=== PATIENT | female | born 1950 | race Caucasian/White ===

== ENCOUNTER 2018-04-22 15:17 | Emergency (ER) | payer OTHER ==
[~2018-04-22] VITALS: Ht 172.7 cm; Wt 83.9 kg
[~2018-04-22 15:17] MED LIST: PROZAC10 MG; XANAX 0.25 MG0.25 MG
[2018-04-22] MEDS ORDERED: NABUMETONE 750750 M1 PO (18:03)
[2018-04-22] MEDS ORDERED: TRAMADOL 50 MG50 MG PO (18:05)
[2018-04-22] MEDS ORDERED: ONDANSETRON HCL4 M2 PO (18:15)
[2018-04-22] MEDS ORDERED: HYDROXYZINE HCL25 M2 PO (18:15)
[2018-04-22 18:25] VITALS: BP 112/56
== END 2018-04-22 18:26 | disposition home or self-care (01) ==
LOC: M.ERS 15:17
DX: S93.401A Sprain of unspecified ligament of right ankle, initial encounter (principal); S93.601A Unspecified sprain of right foot, initial encounter; S80.11XA Contusion of right lower leg, initial encounter; S80.811A Abrasion, right lower leg, initial encounter; R00.0 Tachycardia, unspecified; W10.9XXA Fall (on) (from) unspecified stairs and steps, initial encounter; Y93.89 Activity, other specified; Y92.89 Other specified places as the place of occurrence of the external cause; Y99.8 Other external cause status

== ENCOUNTER 2018-05-20 13:35 | Inpatient (IN) | payer OTHER ==
[~2018-05-20] VITALS: Ht 172.7 cm; Wt 75.7 kg
--- NOTE | ~2018-05-20 | PROC ---
[address] [address] PROCEDURE REPORT Name: INDIA SETH Room: [address] IN .#: [id number] Admission: 05/20/18 Attend Phys: Shannon Wagner MD Discharge: 05/26/18 Date of : 54 Report #: [id number] THIS REPORT FOR: //name// For GI report, please see the Provation report in Perceptive 7 content. By: 0707Medical Records Staff ANITA /VERONIKA
--- NOTE | ~2018-05-20 | CON ---
[address] [address] CONSULTATION Name: INDIA SETH Room: [address] IN [facility]#: [id number] Admission: 05/20/18 Attend Phys: Shannon Wagner MD Discharge: Date of : 54 Report #: [id number] THIS REPORT FOR: //name// CC: Alfonso Ashford Shannon Wagner DATE OF SERVICE: 05/21/2018 GASTROENTEROLOGY CONSULTATION REQUESTING PHYSICIAN: Shannon Wagner MD HISTORY OF PRESENT ILLNESS: This is a 68-year-old female who usually does not see a physician on a regular basis. The patient went to see her PCP a couple days ago for a sprained ankle and she was recognized to be jaundiced and therefore, was sent to the hospital for workup. The patient admits that for the past 6 months, she has been drinking pretty heavily. She drinks near a fifth of vodka per day. She reports the reason that she has been drinking is due to the fact that she has moved from out of [facility] to [place] and is depressed about that. Also, her son has , which makes her very depressed. The patient had a CT of abdomen and pelvis during this admission, which showed evidence of irregularity of the liver with possible large mass noted per CT. Her bilirubin also was elevated to 10, and her AST and ALT were also elevated. Finally, the patient also found to have urinary tract infection for which she is on antibiotic therapy. PAST MEDICAL HISTORY: Significant for history of depression and hypertension. ALLERGIES: No known drug allergies. MEDICATIONS: Include Celexa, Zofran, Toprol-XL and hydrochlorothiazide. SOCIAL HISTORY: The patient has moved from out of [facility] to [place]. She has recently lost her son, which has made her depressed and she has been drinking very heavily about a fifth of vodka a day. She is also a current smoker. FAMILY HISTORY: Significant for breast cancer in the sister. PHYSICAL EXAMINATION: VITAL SIGNS: Reveals blood pressure of 103/48, respirations 18, pulse 81, temperature 98.2. LUNGS: Clear. CARDIOVASCULAR: Regular. ABDOMEN: Large. There is positive fluid [place] [address] CONSULTATION Name: FABIOLA SETHORAMili Nice Room: [address]#: [id number] Admission: 05/20/18 Attend Phys: Shannon Wagner MD Discharge: Date of : 54 Report #: [id number] NEUROLOGIC: The patient is alert, oriented x 3. LABORATORY DATA: Reveal sodium of 132, potassium 3.8, BUN is 10, creatinine 1.3, glucose 89, AST 99, total bilirubin is 7.6, direct bilirubin is 6.4, calcium is 8.4, alkaline phosphatase is 159, ALT is 24, total protein is 5.8, albumin 1.9. BNP is 1668. INR 1.6. WBC is 8.4, hemoglobin 9.1 and platelet of 134. IMAGING: As discussed above. ASSESSMENT AND PLAN: The patient with what appears to be alcoholic liver disease who has ascites and possible lesion in the liver. I will order MRI to further evaluate the lesion and perform an upper endoscopy to rule out gastroesophageal varices. We may consider to tap her belly for diagnostic purposes. I will make further recommendation once the MRI and EGD are complete. By: 1159 0405Kevin Crespo MD /nt
[~2018-05-20 13:35] MED LIST changes: +HYDROXYZINE HCL25 M2 PO; +NABUMETONE 750750 M1 PO; +ONDANSETRON HCL4 M2 PO; +TRAMADOL 50 MG50 MG PO
[2018-05-20 13:43] VITALS: BP 99/43
[2018-05-20] MEDS ORDERED: ZOFRAN ODT4 MG DISSOLVE (13:46)
[2018-05-20] MEDS ORDERED: CELEXA40 MG PO (13:47)
[2018-05-20] MEDS ORDERED: HYDROCHLOROTHIA25 M2 PO (13:47)
[2018-05-20] MEDS ORDERED: TOPROL XL25 MG PO (13:47)
[2018-05-20 14:30] LABS: ABSOLUTE BASOPHILS 0.2 thou/uL (0.0-0.2); ABSOLUTE EOSINOPHILS 0.2 thou/uL (0.0-0.7); ABSOLUTE LYMPHOCYTES 1.9 thou/uL (0.8-5.3); ABSOLUTE MONOCYTES 1.4 thou/uL (0.0-1.2); ABSOLUTE NEUTROPHILS 7.9 thou/uL (1.6-8.1); BASOPHILS 1.5 %; HEMATOCRIT 31.6 % (37.0-47.0); HEMOGLOBIN 10.6 gm/dL (12.0-15.0); LYMPHOCYTES 16.2 %; MCH 35.2 pg (26.0-34.0); MCHC 33.4 g/dL (28.0-37.0); MCV 105.4 fL (80.0-100.0); MONOCYTES 11.8 %; MPV 9.8 fl. (7.2-11.1); NUCLEATED RBCS 0 /100WBC; PLATELET COUNT* 172 thou/uL (150-400); POLYS 68.5 %; RDW-CV 14.6 % (10.5-14.5); WBC 11.6 thou/uL (4.0-11.0)
[2018-05-20 14:51] LABS: ANION GAP 6 mmol/L (7-16); BUN 11 mg/dL (7-18); CALCIUM 8.8 mg/dL (8.5-10.1); CHLORIDE 98 mmol/L (98-107); CO2 25 mmol/L (21-32); CREATININE 1.4 mg/dL (0.6-1.3); GLUCOSE 112 mg/dL (70-99); SODIUM 129 mmol/L (136-145)
[2018-05-20 14:56] LABS: APTT 35.1 Seconds (25.0-31.3); INR 1.6; PROTIME 15.9 Seconds (9.20-11.50)
[2018-05-20 15:01] LABS: ALBUMIN 2.2 g/dL (3.4-5.0); ALKALINE PHOSPHATASE 195 U/L (46-116); AMMONIA 9 umol/L (11-32); AMYLASE 73 U/L (25-115); DIRECT BILIRUBIN 6.4 mg/dL (<0.1-0.3); LIPASE 281 U/L (73-393); NT-PRO BRAIN NAT PEPTIDE 1668 pg/mL (<300); SGOT 122 U/L (15-37); SGPT 33 U/L (30-65); TOTAL BILIRUBIN 9.2 mg/dL (<0.1-1.0); TOTAL PROTEIN 6.9 g/dL (6.4-8.2); TROPONIN-I LEVEL <0.06 ng/mL (<0.06)
--- NOTE | 2018-05-20 16:41 | EKG ---
[place] [address] ELECTROCARDIOGRAM REPORT Name: INDIA SETH Room: [facility]#: [id number] Admission: 05/20/18 Attend Phys: Discharge: Date of : 54 Report #: [id number] THIS REPORT FOR: //name// [facility] ED Test Date: 2018-05-20 Test Time: 13:49:10 Pat Name: INDIA SNOW Department: Room: Gender: F Chemical Detection Expert: Kevin CASTELAN : 1950 Requested By: Thelma Golden Order Number: [id number] MD: Cullen Jefferosn Measurements Intervals [place] Rate: 77 P: 48 AK: 139 QRS: 8 QRSD: 94 T: 3 QT: 429 QTc: 486 Interpretive Statements Sinus rhythm Low voltage, precordial leads Borderline prolonged QT interval No previous ECG available for comparison Electronically Signed On 05-20-2018 16:41:18 CDT by Cullen Jefferson [email or web address] <ELECTRONICALLY SIGNED> By: Cullen Jefferson MD, [facility] 05/20/18 1641 48 Cullen Jefferson MD, [facility] /EPI
[2018-05-20 17:49] LABS: URINE BLOOD NEGATIVE (Negative); URINE CLARITY CLOUDY; URINE COLOR ORANGE; URINE GLUCOSE-RANDOM TRACE (Negative); URINE KETONES 1+ (Negative); URINE LEUKOCYTES-REFLEX TRACE (Negative); URINE PROTEIN 1+ (Negative); URINE SPECIFIC GRAVITY >= 1.030 (1.005-1.030)
[2018-05-20 17:50] LABS: ICTOTEST (BILI CONFIRMATORY) Positive (Negative); URINE BILIRUBIN 3+ (Negative); URINE NITRITE-REFLEX POSITIVE (Negative)
[2018-05-20 17:57] LABS: BACTERIA-REFLEX >30 Many /HPF (None Seen); SQUAMOUS >10 Many /LPF (0-3); URINE WBC-REFLEX 0-5 Rare /HPF (0-5)
[2018-05-20 17:58] LABS: CRYSTALS None Seen /LPF (None Seen); HYALINE CASTS 0-3 Few /LPF (None Seen); MUCUS 0-3 Light strn/LPF (None Seen); URINE RBC None Seen /HPF (0-2)
[2018-05-20 18:03] LABS: AMP/METHAMP Negative (Negative); BARBITURATES Negative (Negative); BENZODIAZEPINES Negative (Negative); COCAINE Negative (Negative); METHADONE Negative (Negative); OPIATES Negative (Negative); PCP Negative (Negative); THC Negative (Negative)
[2018-05-20 18:32] VITALS: BP 99/53
[2018-05-20 18:41] VITALS: BP 99/53
--- NOTE | 2018-05-20 18:59 | NUR ---
PT ADMITTED TO UNIT. PT IS ALERT AND ORIENTED. PT HAS EDEMA OF LEGS AND ANKLES BILATERALLY. JAUNDICE NOTED ON FACE AND AROUND EYES. PULSES 2+ IN UPPER EXTREMITIES AND 1+ IN LOWER EXTREMITIES. LUNGS CLUNDS CLEAR. PT HAS ASCITES. PT DENIES ANY PAIN OR NAUSEA. HOURLY ROUNDING COMPLETED. PT REGUALR DIET BUT NPO AFTER MIDNIGHT, GI CONSULT IN THE MORNING. BED ALARM ON. WILL CONTINUE TO MONITOR.
[2018-05-20 20:30] VITALS: BP 100/55
[2018-05-21 02:12] LABS: HEPATITIS B SURFACE AG Negative (Negative)
--- NOTE | 2018-05-21 04:44 | NUR ---
PATIENT HAS SLEPT WELL THROUGHOUT THE NIGHT WITHOUT ANY ISSUES. VSS ON RA. NO C/O PAIN DURING THE SHIFT. PATIENT HAS REMAINED NPO SINCE MIDNIGHT PER DR. REYEZ. IV IN RIGHT AC-NS @ 70ML/HR. FALL PRECAUTIONS IN PLACE AND HOURLY ROUNDS MADE. WILL CONTINUE WITH PLAN OF CARE AND NURSING TO MONITOR.
[2018-05-21 06:53] LABS: HEMATOCRIT 26.5 % (37.0-47.0); HEMOGLOBIN 9.1 gm/dL (12.0-15.0); MCH 35.7 pg (26.0-34.0); MCHC 34.2 g/dL (28.0-37.0); MCV 104.3 fL (80.0-100.0); RBC 2.54 mil/uL (4.20-5.00); RDW-CV 14.3 % (10.5-14.5); WBC 8.4 thou/uL (4.0-11.0)
[2018-05-21 07:09] LABS: ALBUMIN 1.9 g/dL (3.4-5.0); CALCIUM 8.4 mg/dL (8.5-10.1); CREATININE 1.3 mg/dL (0.6-1.3); POTASSIUM 3.8 mmol/L (3.5-5.1); TOTAL BILIRUBIN 7.6 mg/dL (<0.1-1.0); TOTAL PROTEIN 5.8 g/dL (6.4-8.2)
[2018-05-21 08:16] VITALS: BP 103/48
[2018-05-21 10:37] VITALS: BP 103/48
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
--- NOTE | 2018-05-21 14:21 | NUR ---
PT RETURNED FROM EGD. PT IS ALERT AND ORIENTED. VITALS TAKEN AND PT IS STABLE. PT DENIES ANY PAIN OR NEEDS AT THIS TIME. MORNING MEDS THAT WERE HELD AT 0900 WERE GIVEN. HOURLY ROUNDING COMPLETED. WILL CONTINUE TO MONITOR.
--- NOTE | 2018-05-21 15:11 | NUR ---
REVIEWED AND AGREE WITH ALL CHARTING AND ASSESSMENTS COMPLETED BY ILDEFONSO Meredith RN.
--- NOTE | 2018-05-21 15:11 | NUR ---
PT TRANSFERRED TO [facility] AT THIS TIME. PT IS ALERT AND ORIENTED AND STABLE AT THIS TIME. HOURLY ROUNDING COMPLETED. REPORT GIVEN TO NEW NURSE.
--- NOTE | 2018-05-21 18:17 | NUR ---
ASSUMED CARE OF PATIENT AT 1515. REPORT RECEIVED FROM ILDEFONSO HEWITT. PATIENT SETTLED TO ROOM. PATIENT IS RESTING IN BED AT THIS TIME. PATIENT HAS DENIED ANY PAIN OR NAUSEA. PATIENT HAS GOOD APPETITE. PATIENT DENIES ANY NEEDS A THIS TIME. CALL LIGHT WITHIN REACH. WILL CONTINUE TO MONITOR.
[2018-05-21 23:09] VITALS: BP 98/51
--- NOTE | 2018-05-22 04:50 | NUR ---
ASSESSMENT COMPLETE. PT SLEPT THROUGH THE NIGHT WITHOUT ANY CONCERNS. PT HAS NPO SINCE OK FOR MRI TODAY. IV FLUIDS INFUSING. PT DENIES PAIN AND N/V. PT IS ON ROOM AIR WITH [place] SATS. PT TURNS SELF IN BED DURING THE NIGHT. PT IS UP STANDBY ASSIST TO BATHROOM. SEE ASSESSMENT AND VITALS FOR OTHER DETAILS. CALL LIGHT WITHIN REACH. WILL CONTINUE PLAN OF CARE
[2018-05-22 09:20] VITALS: BP 97/41
[2018-05-22 16:41] VITALS: BP 100/48
--- NOTE | 2018-05-22 17:58 | NUR ---
PATIENT RESTING IN BED. PATIENT UP STANDBY ASSIST. PATIENT DENIES ANY PAIN. PATIENT HAS GOOD APPETITE. PATIENT HAS MRI THIS AM WITHOUT INCIDENT. PATIENT DENIES ANY NEEDS AT THIS TIME. CALL LIGHT WITHIN REACH. WILL CONTINUE TO MONITOR.
[2018-05-22 20:00] VITALS: BP 122/77
--- NOTE | 2018-05-23 05:01 | NUR ---
ASSUMED PATIENT CARE AT 1900. ALERT AND ORIENTED TIMES FOUR. IV PATENT TO FLUIDS INFUSING. NO COMPLAINTS OF PAIN OR DISCOMFORT. UP AD HOMERO. CLINICAL RESEARCH SPECIALIST AND HOURLY ROUNDING COMPLETED DOCUMENTED.
[2018-05-23 08:00] VITALS: BP 83/40
[2018-05-23 16:00] VITALS: BP 101/57
--- NOTE | 2018-05-23 18:30 | NUR ---
ALERT AND ORIENTED X3, VERY FORGETFUL. IV IS PATENT AND INFUSING. PATIENT HAS HAD TWO EPISODES OF VOMITTING BUT DENIES NEED FOR NAUSEA MEDICATION. PAIN BEING MANAGED WITH PO AND IV PAIN MEDICATION. HAVING TREMORS, VERY RESTLESS AND HAS TRIED TO GET UP ON OWN MULTIPLE TIMES THROUGHOUT SHIFT. PATIENT DC'D IV THIS AM AND ALMOST DC'D THE 2ND THIS AFTERNOON. PATIENT ADMITS TO ALCOHOL ABUSE AND ALCOHOL WITHDRAWAL ASSESSMENT CHARTED. WITHDRAWAL SYMPTOMS HAVE PROGRESSED THROUGHOUT SHIFT, DR. MAGANA HAS BEEN NOTIFIED AND ORDERED HER TO TRANSFER TO [facility]. ATIVAN HAS BEEN GIVEN Q4H THROUGHOUT SHIFT. PATIENT IS TACHY AND ELEVATED BP. SLING IN PLACE ON LEFT ARM. HOURLY ROUNDS HAVE BEEN MAINTAINED THROUGHOUT SHIFT. SITTER AT BEDSIDE AT THIS TIME. CALL LIGHT IS WITHIN REACH. NURSING WILL CONTINUE TO MONITOR.
--- NOTE | 2018-05-23 18:43 | NUR ---
ALERT AND ORIENTED X4. UP AD HOMERO IN ROOM. IV IS PATENT AND SALINE LOCKED. DENIES PAIN AND NAUSEA. TOLERATING DIET. HOURLY ROUNDS HAVE BEEN MAINTAINED THROUGHOUT SHIFT. VITAL SIGNS STABLE. CALL LIGHT IS WITHIN REACH. NURSING WILL CONTINUE TO MONITOR.
[2018-05-23 19:20] VITALS: BP 111/57
--- NOTE | 2018-05-23 22:49 | NUR ---
ASSUMED CARE OF PATIENT AT 2200. AGREE WITH ASSESSMENT CHARTED. DENIES PAIN OR NAUSEA. PATIENT IN NO ACUTE DISTRESS. CALL LIGHT WITHIN REACH.
[2018-05-24 04:04] LABS: ABSOLUTE BASOPHILS 0.2 thou/uL (0.0-0.2); ABSOLUTE EOSINOPHILS 0.3 thou/uL (0.0-0.7); ABSOLUTE LYMPHOCYTES 1.9 thou/uL (0.8-5.3); ABSOLUTE MONOCYTES 1.2 thou/uL (0.0-1.2); ABSOLUTE NEUTROPHILS 6.7 thou/uL (1.6-8.1); BASOPHILS 1.5 %; EOSINOPHILS 2.9 %; HEMATOCRIT 27.5 % (37.0-47.0); HEMOGLOBIN 9.3 gm/dL (12.0-15.0); LYMPHOCYTES 18.5 %; MCH 35.5 pg (26.0-34.0); MCHC 33.8 g/dL (28.0-37.0); MCV 105.3 fL (80.0-100.0); MONOCYTES 11.5 %; MPV 10.9 fl. (7.2-11.1); NUCLEATED RBCS 0 /100WBC; PLATELET COUNT* 120 thou/uL (150-400); POLYS 65.6 %; RBC 2.61 mil/uL (4.20-5.00); RDW-CV 14.4 % (10.5-14.5); WBC 10.3 thou/uL (4.0-11.0)
[2018-05-24 04:12] LABS: CALCIUM 8.7 mg/dL (8.5-10.1); CREATININE 1.5 mg/dL (0.6-1.3); POTASSIUM 4.2 mmol/L (3.5-5.1)
[2018-05-24 04:15] LABS: % SATURATION 49 % (20-39); IRON 47 ug/dL (50-175)
--- NOTE | 2018-05-24 05:18 | NUR ---
ALERT AND ORIENTED X4. UP AD HOMERO IN ROOM. DENIES NEED FOR PAIN OR NAUSEA MEDICATION. RESTING QUIETLY ON HOURLY ROUNDS. CALL LIGHT WITHIN REACH.
[2018-05-24 07:56] VITALS: BP 106/52
[2018-05-24 12:00] VITALS: BP 97/46
[2018-05-24] MEDS ORDERED: CIPRO250 M1 PO (12:01)
[2018-05-24] MEDS ORDERED: NEXIUM40 MG PO (12:02)
[2018-05-24] MEDS ORDERED: THERA M PLUS T1 EAC2 PO (12:02)
[2018-05-24] MEDS ORDERED: CELEXA 20 MG TA20 MG PO (12:02)
[2018-05-24 16:00] VITALS: BP 91/46
--- NOTE | 2018-05-24 17:57 | NUR ---
PT PROGRESSING TOWARDS GOALS SLOWLY. VSS. DENIES PAIN. TOLERATING PO INTAKE. AMBULATING WITH ONE ASSIST. PT WANTING TO GO HOME BUT NERVOUS THAT "SHE IS NOT READY". PER HOSPITALIST, PT MAY DC ONCE GI OK WITH DC, WAITING FOR GI TO SEE PT. PT AWARE. DENIES ANY FURTHER QUESTIONS/CONCERNS.
[2018-05-24 20:45] VITALS: BP 119/50
--- NOTE | 2018-05-25 05:39 | NUR ---
PATIENT HAS BEEN SLEEPING WELL THROUGHOUT THE NIGHT WITHOUT ANY ISSUES. NO C/O PAIN. VSS ON RA. PATIENT IS UP AD-HOMERO AND STEADY. IV IN LEFT FOREARM-SL. PATIENT INSTRUCTED TO USE CALL LIGHT WHEN NEEDING ASSISTANCE. HOURLY ROUNDS MADE. WILL CONTINUE WITH PLAN OF CARE AND NURSING TO MONITOR.
[2018-05-25 08:17] VITALS: BP 110/49
--- NOTE | 2018-05-25 14:17 | NUR ---
PT.IN BED WITH LEGS ELEVATED. ASKED HER WHAT HER DISCHARGE PLAN IS. SHE SAID SHE IS SUPPOSED TO GO HOME TOMORROW. SHE WILL GO TO HER COUSIN'S HOUSE. COUSIN IS TAKING CARE OF PT.'S OTHER COUSIN, THAT HAD HIP SURGERY A FEW WEEKS AGO, SHE WILL HELP HER TOO FOR A FEW WEEKS. PT.SAID HER LEGS ARE VERY SWOLLEN AND ARE PAINFUL.
--- NOTE | 2018-05-25 16:43 | NUR ---
PATIENT A&OX4, RA, IV LEFT FOREARM SALINE LOCK. UP AD HOMERO, STEADY GAIT. NO C/O PAIN/N/V. BILATERAL LOWER EXTREMITY EDAMA NOTED, PHYSICAIN AWARE STARTED ON LASIX AND SPIRONOLACTONE. NO OTHER CONCERNS AT THIS TIME. APPROPRIATE AND COOPORATIVE WITH CARE.
[2018-05-25 21:30] VITALS: BP 105/56
--- NOTE | 2018-05-26 06:18 | NUR ---
PATIENT HAS RESTED WELL THROUGHOUT THE NIGHT. VSS ON RA. PATIENT IS UP AD-HOMERO AND STEADY ON HER FEET. ASSESSMENT CHARTED. IV IN LEFT FOREARM-SL. PATIENT INSTRUCTED TO USE CALL LIGHT WHEN NEEDING ASSISTANCE. HOURLY ROUNDS MADE. WILL CONTINUE WITH PLAN OF CARE AND NURSING TO MONITOR.
[2018-05-26 08:13] VITALS: BP 94/51
[2018-05-26] MEDS ORDERED: CELEXA 20 MG TA20 MG PO (10:01)
[2018-05-26] MEDS ORDERED: THERA M PLUS T1 EAC2 PO (10:01)
[2018-05-26] MEDS ORDERED: NEXIUM40 MG PO (10:01)
[2018-05-26] MEDS ORDERED: CIPRO250 M1 PO (10:01)
[2018-05-26] MEDS ORDERED: SPIRONOLACTONE25 M1 PO (10:18)
[2018-05-26] MEDS ORDERED: LASIX 20 MG TAB20 MG PO (10:19)
[2018-05-26] MEDS ORDERED: ACCUNEB SO1.25 MG/1 INH (10:21)
[2018-05-26] MEDS ORDERED: PROTONIX40 M1 PO (10:21)
[2018-05-26] MEDS ORDERED: UNICOMPLEX M TA1 TA1 PO (10:22)
[2018-05-26 12:19] LABS: INR 1.5; PROTIME 15.2 Seconds (9.20-11.50)
[2018-05-26 12:24] LABS: ALBUMIN 2.1 g/dL (3.4-5.0); TOTAL PROTEIN 6.4 g/dL (6.4-8.2)
[2018-05-26 13:02] VITALS: BP 94/51
[2018-05-26 15:58] VITALS: BP 94/51
--- NOTE | 2018-05-26 15:58 | NUR ---
PT GIVEN DISHCRAGE INFORMATION AND PRESCRIPTIONS AT THIS TIME. PT DENIED ANY FURTHER QUESTIONS AT THIS TIME. INFORMATION, WITH PERMISSION FROM PATIENT, GIVEN TO COUSIN REGADING PLANNING AND CARE. IV REMOVED. PT LEFT VIA WHEELCHAIR WITH COUSIN TO HOME CARE. HOURLY ROUNDING COMPLETED.
--- NOTE | 2018-05-26 16:12 | PATH ---
[address] [address] PATHOLOGY RPT PROCEDURE Name: MAGGIE SETH Room: [address] IN .R.#: [id number] Admission: 05/20/18 Date of : 54 Discharge: 05/26/18 Report #: [id number] Path Case #: [id number] [facility] Accession Number: [id number] . 01 Material submitted: . DUODENDAL BIOPSY/DUODENAL ULCER . 01 Clinical history: . None provided . 02 Diagnosis: Duodenal ulcer/biopsy: - Moderate active duodenitis with erosion and prominent fundic gland metaplasia suggesting peptic ulcer disease, negative for granulomas and dysplasia. . (CLAUDIA:at;05/24/2018) QTA/05/24/2018 . 02 Electronically signed: . Umberto Hunter MD, Pathologist NPI- [id number] . 01 Gross description: . Received in formalin labeled "Krivanos Miriam, Maggie, duodenal ulcer/biopsy," are 5 segments of fenton soft tissue measuring 0.9 x 0.6 x 0.2 cm in aggregate dimensions and ranging from 0.1 to 0.3 cm in maximum dimension. The specimen is submitted entirely in cassette A1. (TSD; 05/21/2018) TOB/TOB . 02 Pathologist provided ICD-10: K29.80 . 02 CPT . 102161 Specimen Comment: A courtesy copy of this report has been sent to Specimen Comment: [phone]. Specimen Comment: Report sent to Performed at: [address], [place] [id number] MD Carmelo Camarena MD Phone: [phone] Performed at: 02 [facility] [address], [place], [place] [id number] MD Umberto Hunter MD Phone: [phone]
== END 2018-05-26 16:10 | disposition home or self-care (01) | DRG 433 ==
LOC: M.ERS 13:35 → M.TBA-ER 17:15 → M.3W 17:15 → M.ORTHSURG 17:15 → M.3W 05-21 15:04
PROVIDERS: Internal Medicine; Nurse Practitioner Family; ADMIT Family Medicine
PROC: 0DB98ZX Excision of Duodenum, Via Natural or Artificial Opening Endoscopic, Diagnostic (ICD-10-PCS; principal; 2018-05-21)
DX: K70.31 Alcoholic cirrhosis of liver with ascites (principal); I50.32 Chronic diastolic (congestive) heart failure; K76.6 Portal hypertension; N30.01 Acute cystitis with hematuria; I13.0 Hypertensive heart and chronic kidney disease with heart failure and stage 1 through stage 4 chronic kidney disease, or unspecified chronic kidney disease; Z87.891 Personal history of nicotine dependence; K70.40 Alcoholic hepatic failure without coma; J44.9 Chronic obstructive pulmonary disease, unspecified; D53.9 Nutritional anemia, unspecified; F10.10 Alcohol abuse, uncomplicated; N18.3 Chronic kidney disease, stage 3 (moderate); K44.9 Diaphragmatic hernia without obstruction or gangrene; K31.89 Other diseases of stomach and duodenum; K26.9 Duodenal ulcer, unspecified as acute or chronic, without hemorrhage or perforation; F32.9 Major depressive disorder, single episode, unspecified; F41.9 Anxiety disorder, unspecified; E80.6 Other disorders of bilirubin metabolism; B96.20 Unspecified Escherichia coli [E. coli] as the cause of diseases classified elsewhere; I95.9 Hypotension, unspecified; Z23 Encounter for immunization; Z79.899 Other long term (current) drug therapy; Z80.3 Family history of malignant neoplasm of breast

== ENCOUNTER 2018-06-11 10:52 | Inpatient (IN) | payer OTHER ==
[~2018-06-11] VITALS: Ht 172.7 cm; Wt 98.0 kg
--- NOTE | ~2018-06-11 | CON ---
[address] [address] CONSULTATION Name: INDIA SETH Room: [address] IN .#: [id number] Admission: 06/11/18 Attend Phys: Sveta Arana MD Discharge: Date of : 54 Report #: [id number] THIS REPORT FOR: //name// CC: Sveta Ashford DATE OF SERVICE: 06/13/2018 REASON FOR CONSULTATION: Abdominal pain. HISTORY OF PRESENT ILLNESS: This is a 68-year-old female who is well known to us as she recently was hospitalized and underwent upper endoscopy. At that time, she had evidence of portal hypertensive gastropathy. She also had some duodenitis and esophagitis. We had recommended repeating upper endoscopy in 2 months. The patient reports that when she went home, she started having abdominal pain, which was intermittent. Abdominal pain was sharp and unbearable; therefore, she presented to hospital. Since hospitalization, she was found to be hypotensive with sepsis. She also had a urinary tract infection and has been on 2 antibiotics including Zosyn and Rocephin. Abdominal ultrasound has been obtained, which showed mild amount of ascites, gallbladder sludge without any evidence of bile duct dilatation. She also has worsening of her white count with currently WBC of 25,000. Her creatinine also has increased from 1.3 to 1.7. The patient's bilirubin has been down trending since May 20 as it was 9.2 at that time and 5.2 today. Her liver functions are otherwise mildly elevated but once again improved from previous numbers. Her albumin is 2.0. The patient also had elevated ammonia levels of 99 with mild degree of encephalopathy, which has improved since she has received lactulose t.i.d. and her ammonia is 9.9 today. Her lactulose has been dropped to once a day. PAST MEDICAL HISTORY: Significant for history of alcoholism, but she has stopped 3 months ago. She also used to smoke but does not smoke any further. Her other medical problems include cirrhosis, fatty liver disease, depression, gastroesophageal reflux disease, duodenitis, portal hypertensive gastropathy and gallbladder sludge. SOCIAL HISTORY: The patient lives at home, has previous history of tobacco and alcohol but has not done either one of them for the past 3 months. She has supportive siblings that are associated with her care. FAMILY HISTORY: Negative for GI malignancy. PHYSICAL EXAMINATION: VITAL SIGNS: Reveals blood pressure of 115/52, respirations 22, pulse 108 and [facility] [address] [place] [address] CONSULTATION Name: INDIA SETH [place] Room: [address]#: [id number] Admission: 06/11/18 Attend Phys: Sveta Arana MD Discharge: Date of : 54 Report #: [id number] temperature 97.9. LUNGS: Decreased breath sounds at the bases. CARDIOVASCULAR: Regular rate. ABDOMEN: Edematous and tender to palpation in 4 quadrants. Bowel sounds are positive and hypoactive. NEUROLOGICAL: The patient is alert and oriented x 3. LABORATORY DATA: Labs reveal sodium of 135, potassium 3.5, BUN is 17, creatinine 1.7 and glucose is 120. AST is 54, ALT is 31, alkaline phosphatase 92. Magnesium 2.0, total bilirubin is 5.2 and direct is 4.0. Ammonia level is 9.9 and down from 91. WBC is 23.1, hemoglobin 9.7 and platelet 145. The patient also has urinary tract infection. RADIOLOGICAL DATA: Abdominal ultrasound was done, which showed small amount of sludge within the gallbladder without evidence of cholelithiasis or cholecystitis. The gallbladder wall is thickened, but there is no pericholecystic fluid. There is chronic liver morphology with mild ascites and mild splenomegaly associated with her liver disease. ASSESSMENT AND PLAN: The patient with history of alcoholic liver disease, which her liver enzymes and bilirubin are improving since May 20. She has been septic, most probably secondary to her urinary tract infection. She also has mild ascites; therefore, she may have had SBP since she had abdominal pain. She is already on Zosyn and Rocephin. With this small amount of ascites, it may be difficult for Interventional Radiology to obtain any fluids. She is already on antibiotics anyways. We will continue monitoring her white count, the fact that her ammonia level has responded to lactulose and her mental status is clear is a good sign. She still has lot of fluid in her lower extremities and abdominal wall and she will benefit from diuretics but at the same time, she has elevated creatinine of 1.7 and hypertensive; therefore, we will hold diuretics at this time. We will continue to monitor her during this hospitalization and make further recommendation. By: 1127 [id number] Crespo MD /shasha
--- NOTE | ~2018-06-11 | EKG ---
[place] [address] ELECTROCARDIOGRAM REPORT Name: INDIA SETH Room: [facility]#: [id number] Admission: 06/11/18 Attend Phys: Discharge: Date of : 54 Report #: [id number] THIS REPORT FOR: //name// [facility] ED Test Date: 2018-06-11 Test Time: 10:56:09 Pat Name: INDIA SNOW Department: Room: Gender: F Equipment Engineer: Kevin CASTELAN : 1950 Requested By: Prudence Paulson Order Number: [id number] Reading MD: Measurements Intervals [place] Rate: 110 P: 42 RI: 120 QRS: 3 QRSD: 80 T: -13 QT: 400 QTc: 542 Interpretive Statements Sinus tachycardia Low voltage, precordial leads Borderline repol abnormality, diffuse leads Prolonged QT interval No previous ECG available for comparison [email or web address] By: 1056 1056 Epiphany EpiphanyMD /EPI
[~2018-06-11 10:52] MED LIST changes: +ACCUNEB SO1.25 MG/1 INH; +CELEXA 20 MG TA20 MG PO; +CELEXA40 MG PO; +CIPRO250 M1 PO; +HYDROCHLOROTHIA25 M2 PO; +LASIX 20 MG TAB20 MG PO; +NEXIUM40 MG PO; +PROTONIX40 M1 PO; +SPIRONOLACTONE25 M1 PO; +THERA M PLUS T1 EAC2 PO; +TOPROL XL25 MG PO; +UNICOMPLEX M TA1 TA1 PO; +ZOFRAN ODT4 MG DISSOLVE
[2018-06-11 10:53] VITALS: BP 112/46
[2018-06-11 11:14] LABS: BE -2.7 mmol/L (-2 to +3); HCO3 19.6 mmol/L (22.0-26.0); PCO2 26.4 mmHg (35.0-45.0); PO2 82.6 mmHg (75.0-100.0); pH 7.489 (7.340-7.450)
[2018-06-11 11:50] LABS: CALCIUM 9.5 mg/dL (8.5-10.1); CREATININE 1.3 mg/dL (0.6-1.3); POTASSIUM 3.6 mmol/L (3.5-5.1)
[2018-06-11 11:54] LABS: ALBUMIN 2.3 g/dL (3.4-5.0); MAGNESIUM 1.7 mg/dL (1.8-2.4); TOTAL BILIRUBIN 6.4 mg/dL (<0.1-1.0); TOTAL PROTEIN 6.7 g/dL (6.4-8.2)
[2018-06-11 12:06] LABS: URINE BLOOD 2+ (Negative); URINE CLARITY CLEAR; URINE COLOR DARK YELLOW; URINE GLUCOSE-RANDOM NEGATIVE (Negative); URINE KETONES TRACE (Negative); URINE PROTEIN 1+ (Negative); URINE SPECIFIC GRAVITY 1.025 (1.005-1.030)
[2018-06-11 12:12] LABS: ICTOTEST (BILI CONFIRMATORY) Positive (Negative); URINE BILIRUBIN 2+ (Negative); URINE LEUKOCYTES-REFLEX 2+ (Negative); URINE NITRITE-REFLEX POSITIVE (Negative)
[2018-06-11 12:29] LABS: HEMATOCRIT 30.6 % (37.0-47.0); HEMOGLOBIN 10.3 gm/dL (12.0-15.0); MCH 34.4 pg (26.0-34.0); MCHC 33.8 g/dL (28.0-37.0); MCV 101.7 fL (80.0-100.0); MPV 10.1 fl. (7.2-11.1); NUCLEATED RBCS 0 /100WBC; PLATELET COUNT* 112 thou/uL (150-400); RDW-CV 14.4 % (10.5-14.5); WBC 7.4 thou/uL (4.0-11.0)
[2018-06-11 12:43] LABS: BACTERIA-REFLEX >30 Many /HPF (None Seen); CASTS None Seen /LPF (None Seen); CRYSTALS None Seen /LPF (None Seen); MUCUS >6 Heavy strn/LPF (None Seen); SQUAMOUS 4-10 Moderate /LPF (0-3); TRANSITIONAL EPITHEL CELL 4-10 Moderate /LPF (None Seen); URINE RBC >20 Many /HPF (0-2); URINE WBC-REFLEX >25 Many /HPF (0-5)
[2018-06-11 13:24] LABS: ABSOLUTE EOSINOPHILS 0.1 thou/uL (0.0-0.7); ABSOLUTE LYMPHOCYTES 0.5 thou/uL (0.8-5.3); ABSOLUTE NEUTROPHILS 6.8 thou/uL (1.6-8.1); PLATELET ESTIMATE ADEQUATE
[2018-06-11 18:30] LABS: APTT 27.9 Seconds (25.0-31.3); INR 1.5; PROTIME 15.5 Seconds (9.20-11.50)
[2018-06-11 19:44] LABS: URINE BLOOD 1+ (Negative); URINE CLARITY CLEAR; URINE COLOR DARK YELLOW; URINE GLUCOSE-RANDOM NEGATIVE (Negative); URINE KETONES 1+ (Negative); URINE PROTEIN 1+ (Negative); URINE SPECIFIC GRAVITY 1.025 (1.005-1.030)
[2018-06-11 19:49] LABS: URINE BILIRUBIN 2+ (Negative); URINE LEUKOCYTES-REFLEX 2+ (Negative); URINE NITRITE-REFLEX POSITIVE (Negative)
[2018-06-11 19:50] LABS: ICTOTEST (BILI CONFIRMATORY) Positive (Negative)
[2018-06-11 19:55] LABS: AMP/METHAMP Negative (Negative); BARBITURATES Negative (Negative); BENZODIAZEPINES Negative (Negative); COCAINE Negative (Negative); METHADONE Negative (Negative); OPIATES POSITIVE (Negative); PCP Negative (Negative); THC Negative (Negative)
[2018-06-11 19:59] LABS: CASTS None Seen /LPF (None Seen); CRYSTALS None Seen /LPF (None Seen); SQUAMOUS 0-3 Few /LPF (0-3); URINE RBC 3-10 Few /HPF (0-2); URINE WBC-REFLEX 6-15 Few /HPF (0-5)
[2018-06-11 21:32] VITALS: BP 91/53
[2018-06-11 21:34] VITALS: BP 95/49
[2018-06-11 21:45] VITALS: BP 86/55
[2018-06-11 22:00] VITALS: BP 93/53
[2018-06-11 23:00] VITALS: BP 106/59
[2018-06-12] VITALS (56 sets, daily range): BP systolic 68–112; BP diastolic 35–73
[2018-06-12 04:09] LABS: HEMATOCRIT 27.6 % (37.0-47.0); HEMOGLOBIN 9.3 gm/dL (12.0-15.0); MCH 34.3 pg (26.0-34.0); MCHC 33.8 g/dL (28.0-37.0); MCV 101.4 fL (80.0-100.0); MPV 9.4 fl. (7.2-11.1); RBC 2.72 mil/uL (4.20-5.00); RDW-CV 14.2 % (10.5-14.5); WBC 11.1 thou/uL (4.0-11.0)
[2018-06-12 04:22] LABS: ALBUMIN 1.9 g/dL (3.4-5.0); CALCIUM 8.7 mg/dL (8.5-10.1); CREATININE 1.5 mg/dL (0.6-1.3); MAGNESIUM 2.1 mg/dL (1.8-2.4); POTASSIUM 3.9 mmol/L (3.5-5.1); TOTAL BILIRUBIN 5.7 mg/dL (<0.1-1.0)
[2018-06-13] VITALS (55 sets, daily range): BP systolic 78–136; BP diastolic 36–78
[2018-06-13 05:05] LABS: HEMATOCRIT 29.4 % (37.0-47.0); HEMOGLOBIN 9.6 gm/dL (12.0-15.0); MCH 32.9 pg (26.0-34.0); MCHC 32.7 g/dL (28.0-37.0); MCV 100.7 fL (80.0-100.0); MPV 10.5 fl. (7.2-11.1); RBC 2.92 mil/uL (4.20-5.00); RDW-CV 14.3 % (10.5-14.5); WBC 25.5 thou/uL (4.0-11.0)
[2018-06-13 05:09] LABS: CALCIUM 9.3 mg/dL (8.5-10.1); CREATININE 1.7 mg/dL (0.6-1.3); POTASSIUM 3.5 mmol/L (3.5-5.1); TOTAL BILIRUBIN 5.2 mg/dL (<0.1-1.0); TOTAL PROTEIN 6.4 g/dL (6.4-8.2)
[2018-06-13 10:00] LABS: HEMOGLOBIN 9.7 gm/dL (12.0-15.0); NUCLEATED RBCS 0 /100WBC
[2018-06-13 10:03] LABS: MCH 33.6 pg (26.0-34.0); MCHC 33.3 g/dL (28.0-37.0); MPV 10.4 fl. (7.2-11.1); PLATELET COUNT* 145 thou/uL (150-400); RBC 2.87 mil/uL (4.20-5.00); RDW-CV 14.2 % (10.5-14.5); WBC 23.1 thou/uL (4.0-11.0)
[2018-06-13 12:45] LABS: ABSOLUTE LYMPHOCYTES 2.3 thou/uL (0.8-5.3); ABSOLUTE MONOCYTES 1.4 thou/uL (0.0-1.2); ABSOLUTE NEUTROPHILS 19.4 thou/uL (1.6-8.1); PLATELET ESTIMATE DECREASED
[2018-06-13 12:46] LABS: LARGE PLATELETS OCCASIONAL; TOXIC GRANULATION 1+
[2018-06-13 12:47] LABS: TARGET CELLS Occasional
--- NOTE | 2018-06-13 14:14 | EKG ---
[place] [address] ELECTROCARDIOGRAM REPORT Name: INDIA SETH Room: [address] ADM IN [facility]#: [id number] Admission: 06/11/18 Attend Phys: Sveta Arana MD Discharge: Date of : 54 Report #: [id number] THIS REPORT FOR: //name// [facility] Test Date: 2018-06-12 Test Time: 10:06:55 Pat Name: INDIA VENCESKYLEEARANZA GRAYRES Department: Room: [address] Gender: F Stem Roller Or Crusher Operator: LYNN : 1950 Requested By: Sveta Arana Order Number: [id number] Reading MD: Jason Conway Measurements Intervals [place] Rate: 141 P: CT: QRS: 4 QRSD: 60 T: -13 QT: 331 QTc: 507 Interpretive Statements Atrial fibrillation Low voltage, precordial leads Borderline repolarization abnormality Prolonged QT interval Baseline wander in lead(s) V2,V3 Compared to ECG 06/11/2018 10:56:09 Sinus tachycardia no longer present Electronically Signed On 06-13-2018 14:14:32 QA AUTOMATION ARCHITECT by Jason Conway [email or web address] <ELECTRONICALLY SIGNED> By: Jason Conway MD, FAC 06/13/18 1414 1006 1006 Jason Conway MD, FAC /EPI
--- NOTE | 2018-06-13 14:17 | EKG ---
[place] [address] ELECTROCARDIOGRAM REPORT Name: INDIA SETH Room: [address] ADM IN [facility]#: [id number] Admission: 06/11/18 Attend Phys: Sveta Arana MD Discharge: Date of : 54 Report #: [id number] THIS REPORT FOR: //name// [facility] Test Date: 2018-06-12 Test Time: 10:38:49 Pat Name: INDIA SNOW Department: Room: [address] Gender: F Treasury Director: LYNN : 1950 Requested By: Sveta Arana Order Number: [id number] Phillip MD: Jason Conway Measurements Intervals [place] Rate: 99 P: 34 FL: 143 QRS: -4 QRSD: 78 T: 24 QT: 407 QTc: 523 Interpretive Statements Sinus rhythm consider Inferior infarct, old Prolonged QT interval Baseline wander in lead(s) I Electronically Signed On 06-13-2018 14:17:03 LITHOGRAPH PRESS OPERATOR TINWARE by Jason Conway [email or web address] <ELECTRONICALLY SIGNED> By: Jason Conway MD, [facility] 06/13/18 1417 1038 1038 Jason Conway MD, [facility] /EPI
--- NOTE | 2018-06-13 14:29 | EKG ---
[place] [address] ELECTROCARDIOGRAM REPORT Name: INDIA SETH Room: [address] ADM IN [facility]#: [id number] Admission: 06/11/18 Attend Phys: Sveta Arana MD Discharge: Date of : 54 Report #: [id number] THIS REPORT FOR: //name// [facility] Test Date: 2018-06-13 Test Time: 07:33:22 Pat Name: INDIA VENCESKYLEEARANZA GRAYRES Department: Room: [address] Gender: F Debt Counselor: ZULEMA : 1950 Requested By: Jason Conway Order Number: [id number] Phillip MD: Jason Conway Measurements Intervals [place] Rate: 100 P: 53 OR: 142 QRS: 7 QRSD: 59 T: -1 QT: 377 QTc: 487 Interpretive Statements Sinus tachycardia Supraventricular bigeminy Low voltage, extremity and precordial leads Borderline prolonged QT interval nonspecific st changes Electronically Signed On 06-13-2018 14:29:20 ELEMENTARY SCHOOL READING TEACHER by Jason Conway [email or web address] <ELECTRONICALLY SIGNED> By: Jason Conway MD, [facility] 06/13/18 1429 0733 0733 Jason Conway MD, [facility] /EPI
[2018-06-14] VITALS (56 sets, daily range): BP systolic 72–135; BP diastolic 44–72
[2018-06-14 05:43] LABS: HEMATOCRIT 29.3 % (37.0-47.0); HEMOGLOBIN 9.8 gm/dL (12.0-15.0); MCH 33.4 pg (26.0-34.0); MCHC 33.3 g/dL (28.0-37.0); MCV 100.4 fL (80.0-100.0); MPV 10.2 fl. (7.2-11.1); RBC 2.92 mil/uL (4.20-5.00); RDW-CV 13.8 % (10.5-14.5); WBC 16.9 thou/uL (4.0-11.0)
[2018-06-14 05:56] LABS: ALBUMIN 1.8 g/dL (3.4-5.0); CALCIUM 9.1 mg/dL (8.5-10.1); CREATININE 1.5 mg/dL (0.6-1.3); POTASSIUM 3.6 mmol/L (3.5-5.1); TOTAL BILIRUBIN 5.3 mg/dL (<0.1-1.0); TOTAL PROTEIN 6.1 g/dL (6.4-8.2)
--- NOTE | 2018-06-14 11:52 | EKG ---
[place] [address] ELECTROCARDIOGRAM REPORT Name: INDIA SETH Room: [address] ADM IN [facility]#: [id number] Admission: 06/11/18 Attend Phys: Sveta Arana MD Discharge: Date of : 54 Report #: [id number] THIS REPORT FOR: //name// [facility] Test Date: 2018-06-14 Test Time: 08:22:48 Pat Name: INDIA MEERA SNOW Department: Room: [address] Gender: F Group Insurance Specialist: CS : 1950 Requested By: Jason Conway Order Number: [id number] Reading MD: Jason Conway Measurements Intervals [place] Rate: 107 P: 35 MA: 140 QRS: 7 QRSD: 80 T: 0 QT: 390 QTc: 521 Interpretive Statements Sinus tachycardia Low voltage, precordial leads Nonspecific T abnormalities, anterior leads Prolonged QT interval Compared to ECG 06/13/2018 07:33:22 Atrial premature complex(es) no longer present Electronically Signed On 06-14-2018 11:52:51 BRICK BURNER HEAD by Jason Conway [email or web address] <ELECTRONICALLY SIGNED> By: Jason Conway MD, [facility] 06/14/18 1152 08 1 Jason Conway MD, [facility] /EPI
--- NOTE | 2018-06-14 14:56 | 2DMMODE ---
[place] [address] 2 D/M-MODE ECHOCARDIOGRAM Name: INDIA SETH Room: [address] IN [facility]#: [id number] Admission: 06/11/18 Attend Phys: Sveta Arana, Discharge: Date of : 54 Date of Service: 06/14/18 1456 Report #: [id number] THIS REPORT FOR: //name// APPROVED REPORT Study performed: 06/14/2018 09:46:57 EXAM: Comprehensive 2D, Doppler, and color-flow Echocardiogram Patient Location: In-Patient Room #: [facility] Status: routine BSA: 2.13 HR: 108 bpm BP: 125/63 mmHg Rhythm: NSR Other Information Study Quality: Good Indications Atrial Fibrillation 2D Dimensions IVSd: 9.29 (7-11mm) LVOT Diam: 18.40 (18-24mm) LVDd: 51.08 mm PWd: 8.16 (7-11mm) Ascending Ao: 29.58 (22-36mm) LVDs: 26.43 (25-40mm) Aortic Root: 32.24 mm Volumes Left Atrial Volume (Systole) LA ESV Index: 18.50 mL/m2 Aortic Valve AoV Peak Rodney.: 2.13 m/s AO Peak Gr.: 18.09 mmHg LVOT Max P.89 mmHg AO Mean Gr.: 9.60 mmHg LVOT Mean P.99 mmHg LVOT Max V: 1.65 m/s AO V2 VTI: 32.19 cm LVOT Mean V: 1.02 m/s DUONG (VTI): 2.17 cm2 LVOT V1 VTI: 26.26 cm AI Gaines: 4.42 m/s2 AI PHT: 252.59 ms Mitral Valve E/A Ratio: 0.69 [place] [address] 2 D/M-MODE ECHOCARDIOGRAM Name: INDIA SETH Room: [address] IN [facility]#: [id number] Admission: 06/11/18 Attend Phys: Sveta Arana, Discharge: Date of : 54 Date of Service: 06/14/18 1456 Report #: [id number] MV Decel. Time: 136.53 ms MV E Max Rodney.: 0.93 m/s MV PHT: 39.59 ms MVA (PHT): 5.56 cm2 TDI E/Lateral E': 5.81 E/Medial E': 9.30 Medial E' Rodney.: 0.10 m/s Lateral E' Rodney.: 0.16 m/s Pulmonary Valve PV Peak Rodney.: 1.20 m/s PV Peak Gr.: 5.74 mmHg Tricuspid Valve RAP Estimate: 5.00 mmHg TR Peak Gr.: 18.76 mmHg RVSP: 24.00 mmHg PA Pressure: 24.00 mmHg Left Ventricle The left ventricle is normal size. There is normal LV segmental wall motion. There is normal left ventricular wall thickness. Left ventricular systolic function is normal. The left ventricular ejection fraction is within the normal range. LVEF is 60-65%. Grade I - abnormal relaxation pattern. Right Ventricle The right ventricle is normal size. The right ventricular systolic function is normal. Atria The left atrium size is normal. The right atrium size is normal. Aortic Valve The aortic valve is normal in structure. Mild aortic regurgitation. There is no aortic valvular stenosis. Mitral Valve The mitral valve is normal in structure. There is no mitral valve regurgitation noted. No evidence of mitral valve stenosis. Tricuspid Valve The tricuspid valve is normal in structure. Trace tricuspid regurgitation. No pulmonary hypertension[place] [address] 2 D/M-MODE ECHOCARDIOGRAM Name: INDIA SETH Room: [address]#: [id number] Admission: 06/11/18 Attend Phys: Sveta Arana, Discharge: Date of : 54 Date of Service: 06/14/18 1456 Report #: [id number] The pulmonary valve is normal in structure. There is no pulmonic valvular regurgitation. Great Vessels The aortic root is normal in size. IVC is not visualized. Pericardium There is no pericardial effusion. <Conclusion> LVEF is 60-65%. Mild aortic regurgitation. <ELECTRONICALLY SIGNED> By: Jason Conway MD, FACC 06/14/18 1456 145 [id number] Jason Conway MD, FACC /INF
[2018-06-14 17:03] LABS: BF LYMPHOCYTES 2 %; BF MONOCYTES 4 %; BF POLYS 94 %; BF TISSUE 6 /100 WBC
[2018-06-14 17:05] LABS: BF RBC 4319 /mm3; CLARITY HAZY; COLOR AMBER; SOURCE ASCITES; TOTAL CELL COUNT 6895 /mm3; TOTAL VOLUME 3710 ml
[2018-06-15] VITALS (59 sets, daily range): BP systolic 86–141; BP diastolic 45–82
[2018-06-15 04:17] LABS: HEMATOCRIT 28.3 % (37.0-47.0); HEMOGLOBIN 9.6 gm/dL (12.0-15.0); MCH 33.8 pg (26.0-34.0); MCHC 34.1 g/dL (28.0-37.0); MCV 99.3 fL (80.0-100.0); MPV 9.9 fl. (7.2-11.1); RBC 2.85 mil/uL (4.20-5.00); RDW-CV 14.1 % (10.5-14.5)
[2018-06-15 04:31] LABS: ALBUMIN 1.7 g/dL (3.4-5.0); CALCIUM 9.1 mg/dL (8.5-10.1); CREATININE 1.3 mg/dL (0.6-1.3); POTASSIUM 3.3 mmol/L (3.5-5.1); TOTAL BILIRUBIN 5.4 mg/dL (<0.1-1.0)
[2018-06-15 04:39] LABS: TOTAL PROTEIN 5.8 g/dL (6.4-8.2)
--- NOTE | 2018-06-15 08:49 | CON ---
[address] [address] CONSULTATION Name: INDIA SETH Room: [address] IN [facility]#: [id number] Admission: 06/11/18 Attend Phys: Sveta Arana MD Discharge: Date of : 54 Report #: [id number] THIS REPORT FOR: //name// CC: Sveta Ashford DATE OF SERVICE: 06/14/2018 REASON FOR CONSULTATION: Pelvic mass. SUBJECTIVE: This is a 68-year-old female who has been admitted on 06/11/2018 due to nausea, vomiting and intractable abdominal pain. She is known to have alcohol-related liver cirrhosis. She denies any fever; however, she has been in the Intensive Care Unit due to hypotension and she has been started on empiric antibiotics. Initial evaluation of the CT of the abdomen and pelvis showed a small basilar pleural effusion with basilar pulmonary atelectasis plus ascites with a gallstone and possible gallbladder wall thickening. Later on, she had pelvic ultrasounds, which showed 4.1 x 3.5 x 2.8 echogenic mass within the right adnexa, is not calcified or fat density on the CT scan, uncertain etiology. The patient had a paracentesis on 06/12/2018. Cytology is pending. The patient is not able to tell whether she has been having weight loss recently. REVIEW OF SYSTEMS: Unable to be obtained due to the clinical condition. PAST MEDICAL HISTORY: Cirrhosis due to alcohol, anxiety, depression, GERD. MEDICATIONS: Per admission list. ALLERGIES: No known allergies. FAMILY HISTORY: Positive for breast cancer in sister. SOCIAL HISTORY: She smokes 1 pack per day. She uses alcohol almost around a liter on a daily basis; however, last time she drank alcohol was 3 months ago per her records. PHYSICAL EXAMINATION: VITAL SIGNS: Today, temperature is 36.6, pulse is 107, respirations 21, blood pressure is 122/55, SpO2 was 97% on 4 liters. GENERAL: The patient was lying in bed. She was not in acute distress. LUNGS: Decreased breathing sounds bilaterally. HEART: Regular rate and rhythm. S1, S2 within normal limits. ABDOMEN: Positive for ascites. Bowel sounds were positive. EXTREMITIES: +2 [place] [address] CONSULTATION Name: INDIA SETH Room: [address]#: [id number] Admission: 06/11/18 Attend Phys: Sveta Arana MD Discharge: Date of : 54 Report #: [id number] LABORATORY DATA: WBC 16.9, hemoglobin 9.8, MCV 100.4, platelets 125. Creatinine is 1.5, total bilirubin 5.3, ammonia 9.9, CA-125 is 445.5. IMAGING: As mentioned above. ASSESSMENT AND PLAN: A 68-year-old female who had liver cirrhosis due to alcohol, was found to have a 4 cm right adnexal mass with elevated tumor marker, CA-125. Her clinical condition is suspicious of ovarian cancer; however, the patient at this point is receiving supportive medical treatments and treatment for sepsis. She continues to be on antibiotics for complicated urinary tract infection/pneumonitis. RECOMMENDATIONS: I would like to make a referral as an outpatient for a Gynecology/Oncology. I discussed with the patient and the family at the bedside. At this point, we will continue current supportive care and make her stable. I discussed with RN. Most likely, the patient will be transferred to the floor in the morning if she continues to be in a stable clinical condition. All questions have been answered. <ELECTRONICALLY SIGNED> By: Angelica Tian MD 06/15/18 0849 1640 [id number] Tian MD /nt
[2018-06-15 13:11] LABS: BODY FLUID LDH 381 IU/L (()); BODY FLUID PROTEIN 0.9 g/dL (())
[2018-06-15 15:09] LABS: SOURCE ABDOMINAL
[2018-06-15 17:01] LABS: URINE BLOOD 1+ (Negative); URINE CLARITY CLEAR; URINE COLOR YELLOW; URINE GLUCOSE-RANDOM NEGATIVE (Negative); URINE KETONES TRACE (Negative); URINE LEUKOCYTES-REFLEX NEGATIVE (Negative); URINE NITRITE-REFLEX NEGATIVE (Negative); URINE PROTEIN NEGATIVE (Negative); URINE UROBILINOGEN 0.2 E.U./dl (0.2-1.0)
[2018-06-15 17:04] LABS: ICTOTEST (BILI CONFIRMATORY) Negative (Negative); URINE BILIRUBIN 1+ (Negative)
[2018-06-15 17:16] LABS: HYALINE CASTS >10 Many /LPF (None Seen); SQUAMOUS 0-3 Few /LPF (0-3)
[2018-06-15 17:17] LABS: MUCUS None Seen strn/LPF (None Seen); URINE WBC-REFLEX 0-5 Rare /HPF (0-5); YEAST-REFLEX Present (None Seen)
[2018-06-15 17:18] LABS: BACTERIA-REFLEX 1-9 Few /HPF (None Seen); CRYSTALS None Seen /LPF (None Seen); URINE RBC 0-2 Rare /HPF (0-2)
[2018-06-16] VITALS: BP 101/47
[2018-06-16 04:00] VITALS: BP 97/51
[2018-06-16 05:46] LABS: HEMATOCRIT 23.5 % (37.0-47.0); HEMOGLOBIN 8.1 gm/dL (12.0-15.0); MCH 34.4 pg (26.0-34.0); MCHC 34.4 g/dL (28.0-37.0); MCV 99.9 fL (80.0-100.0); RBC 2.35 mil/uL (4.20-5.00); RDW-CV 14.1 % (10.5-14.5); WBC 10.3 thou/uL (4.0-11.0)
[2018-06-16 06:13] LABS: ALBUMIN 2.4 g/dL (3.4-5.0); CALCIUM 9.4 mg/dL (8.5-10.1); CREATININE 1.2 mg/dL (0.6-1.3); POTASSIUM 3.3 mmol/L (3.5-5.1); TOTAL BILIRUBIN 5.3 mg/dL (<0.1-1.0); TOTAL PROTEIN 5.7 g/dL (6.4-8.2)
[2018-06-16 08:08] VITALS: BP 107/49
[2018-06-16 16:00] VITALS: BP 104/56
[2018-06-16 20:00] VITALS: BP 100/53
[2018-06-16 23:37] VITALS: BP 107/55
[2018-06-17 04:34] VITALS: BP 96/49
[2018-06-17 05:08] LABS: HEMATOCRIT 22.8 % (37.0-47.0); HEMOGLOBIN 7.8 gm/dL (12.0-15.0); MCHC 34.3 g/dL (28.0-37.0); MCV 99.1 fL (80.0-100.0); MPV 10.4 fl. (7.2-11.1); RBC 2.3 mil/uL (4.20-5.00); RDW-CV 13.9 % (10.5-14.5); WBC 11.7 thou/uL (4.0-11.0)
[2018-06-17 05:29] LABS: ALBUMIN 2.9 g/dL (3.4-5.0); CALCIUM 9.8 mg/dL (8.5-10.1); CREATININE 1.3 mg/dL (0.6-1.3); MAGNESIUM 1.8 mg/dL (1.8-2.4); TOTAL BILIRUBIN 5.6 mg/dL (<0.1-1.0)
[2018-06-17 08:35] VITALS: BP 104/46
[2018-06-17 15:09] VITALS: BP 94/41
[2018-06-17 16:00] VITALS: BP 110/41
[2018-06-17 20:11] VITALS: BP 89/45
[2018-06-18] VITALS: BP 95/47
[2018-06-18 04:00] VITALS: BP 109/37
[2018-06-18 08:00] VITALS: BP 116/58
[2018-06-18 12:00] VITALS: BP 90/52
[2018-06-18 16:00] VITALS: BP 104/55
[2018-06-18 20:00] VITALS: BP 91/47
[2018-06-19 01:30] VITALS: BP 91/41
[2018-06-19 04:00] VITALS: BP 96/51
--- NOTE | 2018-06-19 07:24 | CON ---
[address] [address] CONSULTATION Name: INDIA SETH Room: [address] IN [facility]#: [id number] Admission: 06/11/18 Attend Phys: Sveta Arana MD Discharge: Date of : 54 Report #: [id number] THIS REPORT FOR: //name// CC: Sveta Ashford REASON FOR CONSULTATION: Worsening respiratory failure. HISTORY OF PRESENT ILLNESS: This is a 68-year-old female patient who was admitted to this hospital on 06/11/2018 with a chief complaint of abdominal pain that began on the day of the hospitalization associated with nausea and vomiting multiple times, although she did not have fever or chills. During this hospitalization, she was evaluated by Cardiology after she was found in atrial fibrillation and her echocardiogram demonstrated preserved EF with diastolic dysfunction. She has a background history of alcohol abuse. She had been alcoholic in the past and she has liver cirrhosis. She followed Dr. Crespo from GI service. During this hospitalization, her chest x-ray showed bilateral infiltrate, which was thought to be secondary to fluid overload and pneumonia. She was seen by ID and started on antibiotic that was changed recently. She is currently on vancomycin and Unasyn. She was on cefepime prior to Unasyn. Her O2 needs have been increasing during this hospitalization. Last night, she developed respiratory distress and she had to be placed on the BiPAP. Her chest x-ray continued to worsen showing bilateral infiltrates with signs of vascular congestion. Also, during this hospitalization, she underwent paracentesis with drainage of 4 liters of fluid from her abdomen. When I saw her today, she was on BiPAP. She looks comfortable, tolerating the BiPAP well and ABGs were noted that will be discussed below. PAST MEDICAL HISTORY: History of alcoholic liver disease, history of depression, history of alcohol abuse, history of jaundice. REVIEW OF SYSTEMS: Limited due to the fact that she is on a BiPAP mask. I was unable to understand the patient, although she tried to talk to me but her sound was muffled. HOME MEDICATIONS: [facility]. ALLERGIES: No known drug allergies. FAMILY HISTORY: Positive for breast cancer. SOCIAL HISTORY: Smoker, 1 pack per day. She drinks alcohol daily; however, she reported she did not drink alcohol for the last 3 months. PHYSICAL EXAMINATION: GENERAL: She was on BiPAP overall looking comfortable, tolerating the BiPAP, [place] [address] CONSULTATION Name: INDIA SETH Room: [address]#: [id number] Admission: 06/11/18 Attend Phys: Sveta Arana MD Discharge: Date of : 54 Report #: [id number] asking to drink. VITAL SIGNS: Blood pressure 109/37, pulse rate of 100, temperature 36.6. HEENT: Oral cavity not examined, I did not take the BiPAP mask off. NECK: Trachea central. Neck is supple. No palpable lymph node, no palpable thyroid. CHEST: Diminished air movement bilaterally with prolonged expiratory phase, some rare end-expiratory wheeze. HEART: S1, S2, tachycardic. ABDOMEN: Slightly distended guarding, no rigidity. EXTREMITIES: Lower extremities, trace edema. No calf tenderness. NEUROLOGIC: Moving all 4 extremities spontaneously. No focal weakness. Cranial nerve examination limited because of BiPAP mask. PSYCHIATRIC: Mood and affect could not be evaluated. LYMPHATICS: No palpable lymph nodes. LABORATORY DATA: She had multiple sets of blood test during this hospitalization, reviewed. Initially, her white blood count was 7.4, today is 15.5. Her hemoglobin today is 8.1 compared to 10.3 upon hospitalization. Her platelets is 107 today, her potassium is 3.1. Sodium 143. Creatinine of 1.4, it was 1.3 upon hospitalization. Her ABGs this morning 7.48, this was done on BiPAP. Earlier during the hospitalization also ABGs done on 3 liters 7.. Her INR is 1.5. She had multiple chest imaging during this hospitalization reviewed, showed progressive infiltrate and signs of vascular congestion and today's chest x-ray, increased left lung consolidation. IMPRESSION: 1. Acute hypoxic respiratory failure. 2. Pulmonary infiltrate. 3. Fluid overload. 4. Diastolic dysfunction. 5. Liver cirrhosis. 6. Ascites. 7. History of alcohol abuse. 8. Smoker with presumed chronic obstructive pulmonary disease. PLAN: At this point, the patient is tolerating the BiPAP. I would continue the BiPAP support, although I discussed with RN, might give her breaks during the daytime to by nasal cannula to see if she can tolerate it, but I would recommend to keep her on the BiPAP most of the coming 24 hours. She needs a followup ABGs and chest x-ray. She is on antibiotic that was changed yesterday by ID. I am going to trial her on steroids and she will be on nebulization treatment. I agree with diuresis, noted she received an extra dose of Lasix this morning. We will follow along with you. [address] [address] CONSULTATION Name: INDIA SETH Room: [address] IN [facility]#: [id number] Admission: 06/11/18 Attend Phys: Sveta Arana MD Discharge: Date of : 54 Report #: [id number] Thank you for the consult. We will do a chest x-ray and ABG in a.m. <ELECTRONICALLY SIGNED> By: Lorraine Cordova MD 06/19/18 0724 0827 [id number] Peña MD /nt
[2018-06-19 08:05] VITALS: BP 96/51
[2018-06-19 08:46] LABS: BE -2.9 mmol/L (-2 to +3); HCO3 19.5 mmol/L (22.0-26.0); PCO2 26.3 mmHg (35.0-45.0); PO2 60.1 mmHg (75.0-100.0); pH 7.489 (7.340-7.450)
[2018-06-19 12:00] VITALS: BP 91/46
[2018-06-19 16:00] VITALS: BP 105/56
[2018-06-19 19:40] VITALS: BP 107/54
[2018-06-20] VITALS: BP 98/52
[2018-06-20 04:00] VITALS: BP 94/41
[2018-06-20 07:30] VITALS: BP 107/56
[2018-06-20 12:00] VITALS: BP 122/58
[2018-06-20 16:00] VITALS: BP 102/54
[2018-06-20 19:40] VITALS: BP 95/46
[2018-06-21] VITALS: BP 103/56
[2018-06-21 04:00] VITALS: BP 103/51
[2018-06-21 04:01] LABS: HEMATOCRIT 23.6 % (37.0-47.0); HEMOGLOBIN 7.8 gm/dL (12.0-15.0); MCH 33.4 pg (26.0-34.0); MCHC 33.2 g/dL (28.0-37.0); MCV 100.7 fL (80.0-100.0); MPV 11.6 fl. (7.2-11.1); RBC 2.34 mil/uL (4.20-5.00); RDW-CV 15.5 % (10.5-14.5); WBC 18.8 thou/uL (4.0-11.0)
[2018-06-21 04:20] LABS: ALBUMIN 2.4 g/dL (3.4-5.0); CALCIUM 9.7 mg/dL (8.5-10.1); CREATININE 1.4 mg/dL (0.6-1.3); MAGNESIUM 1.7 mg/dL (1.8-2.4); POTASSIUM 3.4 mmol/L (3.5-5.1); TOTAL BILIRUBIN 3.1 mg/dL (<0.1-1.0); TOTAL PROTEIN 5.6 g/dL (6.4-8.2)
[2018-06-21 09:30] VITALS: BP 118/46
--- NOTE | 2018-06-21 10:05 | PATH ---
[address] [address] PATHOLOGY RPT PROCEDURE Name: INDIA SETH Room: [address] IN [facility]#: [id number] Admission: 06/11/18 Date of : 54 Discharge: Report #: [id number] Path Case #: [id number] Note [facility] Accession Number: [id number] TESTS RESULT FLAG UNITS REF RANGE LAB Clinician Provided Cytology Information No. of containers..01 Other (Miscellaneous) Source: 01 ABDOMINAL FLUID DIAGNOSIS: 02 ABDOMINAL FLUID NEGATIVE FOR MALIGNANT CELLS. FEW REACTIVE MESOTHELIAL CELLS AND ABUNDANT INFLAMMATION, PREDOMINANTLY ACUTE. INCLUDES EVALUATION WITH A CELL BLOCK. Signed out by: 02 Umberto Hunter MD, Pathologist NPI- [id number] Performed by: 01 Stefanie Fischer, Message Broker Developer ([facility]) Gross description: 01 40ML, YELLOW, CLOUDY /LCS FLAG LEGEND: L-Low Normal,H-High Normal,LL-Alert Low,HH-Alert High <-Panic Low,>-Panic High,A-Abnormal,AA-Critical Abnormal Performed at: [address] [place] [address] Carmelo Camarena MD, [address] [place] [id number] Umberto Hunter MD, Specimen Comment: A courtesy copy of this report has been sent to Specimen Comment: [phone]. Specimen Comment: Report sent to Specimen Comment: A duplicate report has been generated due to demographic updates. Performed at: [address], [place], [place] [id number] MD Carmelo Camarena MD Phone: [phone]
[2018-06-21 12:00] VITALS: BP 120/49
--- NOTE | 2018-06-21 13:08 | CON ---
[address] [address] CONSULTATION Name: INDIA SETH Room: [address] IN .#: [id number] Admission: 06/11/18 Attend Phys: Sveta Arana MD Discharge: Date of : 54 Report #: [id number] THIS REPORT FOR: //name// CC: Sveta Ashford DATE OF SERVICE: 06/12/2018 HISTORY OF PRESENT ILLNESS: The patient is a 68-year-old single white female who I was asked to see in the hospital today after she was noted to be in atrial fibrillation. The history is obtained from the patient as well as some old records. The patient has been an alcoholic in the past. She previously drank up to a fifth of whiskey a day. She was diagnosed with liver disease this fall. She has been followed by Dr. Crepso. She was admitted to [place] yesterday with abdominal discomfort and nausea. This morning she went into rapid atrial fibrillation. I was asked to see her for further evaluation and treatment. She denies a history of heart disease. She does have occasional chest pain, although it is nonexertional. She is not very active at this time. She denies any shortness of breath, palpitations or recent syncope. PAST MEDICAL HISTORY: She has had a hysterectomy. There is no history of hypertension, diabetes, hyperlipidemia. She has no known drug allergies. CURRENT MEDICATIONS: Consist of Nexium, Celexa. She has been on Lasix in the past. She has been on spironolactone. ALLERGIES: She has no known drug allergies. FAMILY HISTORY: Father of heart attack when he was 42. 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 She has been a smoker, but quit several months ago. She no longer abuses alcohol. She has a history of illicit drug use including using cocaine and methamphetamines. She never used IV drugs. Apparently, one of her ex-husbands was a drug dealer. REVIEW OF SYSTEMS: She has had no history of a stroke, asthma, peptic ulcer disease, GI bleeding, kidney disease, cancer, psychiatric illness. PHYSICAL EXAMINATION: GENERAL: Revealed a middle-aged female who appeared in no acute distress, lying in bed. VITAL SIGNS: She had a blood pressure of only 90 systolic, pulse was 90. She is afebrile. HEENT: She was icteric, conjunctivae pink[place] [address] CONSULTATION Name: INDIA SETH Room: [address] IN ..#: [id number] Admission: 06/11/18 Attend Phys: Sveta Arana MD Discharge: Date of : 54 Report #: [id number] NECK: Veins do not appear distended. CHEST: Clear to auscultation. CARDIAC: Regular rate and rhythm, no murmur. ABDOMEN: Distended. EXTREMITIES: Had no edema. Dorsalis pedis pulse 1+ bilaterally. SKIN: Jaundiced. DIAGNOSTIC DATA: Her ECG on admission yesterday showed a sinus tachycardia with low voltage, nonspecific T-wave changes. Today, ECG shows atrial fibrillation with rapid ventricular response rate. Her workup so far, she had a chest x-ray on admission yesterday that showed atelectasis, otherwise unremarkable. She had lab work that consist of creatinine 1.5, bilirubin 5.7, SGOT 72, alkaline phosphatase of 94, SGPT 31, albumin is 1.9. Ammonia level is 91, which is elevated. Her INR is 1.5. Her white blood cell count 11.1, hemoglobin 9.3, MCV 101, platelet count 106,000. IMPRESSION AND RECOMMENDATIONS: 1. Atrial fibrillation. I would check thyroid function studies and an echocardiogram. At this time, the blood pressure is too low for beta antonio. I would recommend loading the patient with digoxin. If she has recurrent atrial fibrillation, I would recommend antiarrhythmic therapy. 2. Cirrhosis. 3. Anemia. 4. History of alcohol abuse. 5. History of illicit drug use. 6. History of tobacco abuse. <ELECTRONICALLY SIGNED> By: Jason Conway MD, FACC 06/21/18 1308 1100 [id number] Conway MD, FACC /nt
[2018-06-21 16:00] VITALS: BP 112/45
[2018-06-21 17:58] LABS: MAGNESIUM 1.8 mg/dL (1.8-2.4)
[2018-06-21 17:59] LABS: POTASSIUM 4.4 mmol/L (3.5-5.1)
[2018-06-21 20:30] VITALS: BP 103/56
[2018-06-22] VITALS (7 sets, daily range): BP systolic 99–118; BP diastolic 45–55
[2018-06-22 08:50] LABS: HEMATOCRIT 24.7 % (37.0-47.0); HEMOGLOBIN 8.3 gm/dL (12.0-15.0); MCH 33.9 pg (26.0-34.0); MCHC 33.6 g/dL (28.0-37.0); MCV 100.7 fL (80.0-100.0); MPV 11.9 fl. (7.2-11.1); RBC 2.45 mil/uL (4.20-5.00); RDW-CV 15.3 % (10.5-14.5); WBC 20.2 thou/uL (4.0-11.0)
[2018-06-22 09:02] LABS: ALBUMIN 2.5 g/dL (3.4-5.0); CALCIUM 9.8 mg/dL (8.5-10.1); CREATININE 1.3 mg/dL (0.6-1.3); MAGNESIUM 1.8 mg/dL (1.8-2.4); PHOSPHORUS* 3.1 mg/dL (2.5-4.9); POTASSIUM 4.2 mmol/L (3.5-5.1); TOTAL BILIRUBIN 3.2 mg/dL (<0.1-1.0); TOTAL PROTEIN 5.7 g/dL (6.4-8.2)
[2018-06-23 04:00] VITALS: BP 132/86
[2018-06-23 05:07] LABS: HEMATOCRIT 24.3 % (37.0-47.0); HEMOGLOBIN 8.1 gm/dL (12.0-15.0); MCH 33.7 pg (26.0-34.0); MCHC 33.4 g/dL (28.0-37.0); MCV 100.9 fL (80.0-100.0); MPV 11.6 fl. (7.2-11.1); RBC 2.41 mil/uL (4.20-5.00); RDW-CV 15.3 % (10.5-14.5); WBC 19.2 thou/uL (4.0-11.0)
[2018-06-23 05:25] LABS: ALBUMIN 2.4 g/dL (3.4-5.0); CALCIUM 9.8 mg/dL (8.5-10.1); CREATININE 1.2 mg/dL (0.6-1.3); MAGNESIUM 1.8 mg/dL (1.8-2.4); PHOSPHORUS* 3.4 mg/dL (2.5-4.9); POTASSIUM 4.1 mmol/L (3.5-5.1); TOTAL BILIRUBIN 3.1 mg/dL (<0.1-1.0); TOTAL PROTEIN 5.6 g/dL (6.4-8.2)
[2018-06-23 08:00] VITALS: BP 103/45
[2018-06-23] MEDS ORDERED: AMOXICILLIN 50500 MG PO (12:24)
[2018-06-23] MEDS ORDERED: DIGOXIN250 MCG PO (12:34)
[2018-06-23] MEDS ORDERED: MIDODRINE HCL 55 M1 PO (12:35)
[2018-06-23] MEDS ORDERED: LACTULOSE10 GM/15 M PO (12:36)
[2018-06-23] MEDS ORDERED: SPIRONOLACTONE50 MG PO (12:37)
[2018-06-23] MEDS ORDERED: PREDNISONE 10 M10 MG PO (12:38)
[2018-06-23] MEDS ORDERED: BACTRIM DS TAB1 EAC1 PO (12:39)
[2018-06-23 12:40] VITALS: BP 103/45
== END 2018-06-23 16:05 | DRG 871 ==
LOC: M.ERS 10:52 → M.TBA-ER 15:55 → M.ERS 15:55 → M.2W 18:14 → M.TBA-ER 18:14 → M.ICU 18:14 → M.2W 06-15 17:04
PROVIDERS: Internal Medicine; Personal Emergency Response Attendant; ADMIT Internal Medicine
PROC: 02HV33Z Insertion of Infusion Device into Superior Vena Cava, Percutaneous Approach (ICD-10-PCS; principal; 2018-06-11)
PROC: 0W9G3ZZ Drainage of Peritoneal Cavity, Percutaneous Approach (ICD-10-PCS; 2018-06-15)
PROC: 5A09357 Assistance with Respiratory Ventilation, Less than 24 Consecutive Hours, Continuous Positive Airway Pressure (ICD-10-PCS; 2018-06-18)
DX: A41.9 Sepsis, unspecified organism (principal); J15.6 Pneumonia due to other Gram-negative bacteria; J96.01 Acute respiratory failure with hypoxia; K65.9 Peritonitis, unspecified; K76.6 Portal hypertension; N18.3 Chronic kidney disease, stage 3 (moderate); F32.9 Major depressive disorder, single episode, unspecified; F41.9 Anxiety disorder, unspecified; K70.31 Alcoholic cirrhosis of liver with ascites; I48.91 Unspecified atrial fibrillation; D64.9 Anemia, unspecified; K31.89 Other diseases of stomach and duodenum; K29.80 Duodenitis without bleeding; K20.9 Esophagitis, unspecified; J44.9 Chronic obstructive pulmonary disease, unspecified; F17.210 Nicotine dependence, cigarettes, uncomplicated; I95.9 Hypotension, unspecified; N30.90 Cystitis, unspecified without hematuria; I51.89 Other ill-defined heart diseases; N83.209 Unspecified ovarian cyst, unspecified side; B96.20 Unspecified Escherichia coli [E. coli] as the cause of diseases classified elsewhere; D69.6 Thrombocytopenia, unspecified; E27.9 Disorder of adrenal gland, unspecified; K72.90 Hepatic failure, unspecified without coma; E87.70 Fluid overload, unspecified; N83.9 Noninflammatory disorder of ovary, fallopian tube and broad ligament, unspecified; Z79.51 Long term (current) use of inhaled steroids; Z80.3 Family history of malignant neoplasm of breast; Z90.710 Acquired absence of both cervix and uterus; Z79.899 Other long term (current) drug therapy; Z82.49 Family history of ischemic heart disease and other diseases of the circulatory system; Z87.11 Personal history of peptic ulcer disease

== ENCOUNTER → 2018-10-11 | Outpatient (CLI) | payer OTHER ==
[~2018-10-11] MED LIST changes: +AMOXICILLIN 50500 MG PO; +BACTRIM DS TAB1 EAC1 PO; +DIGOXIN250 MCG PO; +LACTULOSE10 GM/15 M PO; +MIDODRINE HCL 55 M1 PO; +PREDNISONE 10 M10 MG PO; +SPIRONOLACTONE50 MG PO
== END ==
LOC: M.ULTRA 09:00
DX: K74.60 Unspecified cirrhosis of liver (principal); R16.1 Splenomegaly, not elsewhere classified; R18.8 Other ascites

== ENCOUNTER → 2019-04-01 | Day surgery (SDC) | payer OTHER ==
[~2019-04-01] MED LIST changes: +VITAMIN B-1100 M1 PO; +XIFAXAN550 M1 PO
--- NOTE | ~2019-04-01 | PROC ---
[address] [address] PROCEDURE REPORT Name: INDIA ESTES Room: [facility]#: [id number] Admission: 04/01/19 Attend Phys: Kevin Crespo MD Discharge: Date of : 54 Report #: [id number] THIS REPORT FOR: //name// For GI report, please see the Provation report in Perceptive 7 content. By: 0819Medical Records Staff ANITA /VERONIKA
--- NOTE | 2019-04-01 10:51 | EKG ---
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 04/01/19 1051 1007 1007 Delvin Figueroa MD, FAC /EPI
--- NOTE | 2019-04-04 16:06 | PATH ---
[address] [address] PATHOLOGY RPT PROCEDURE Name: MAGGIE CUI Room: [facility]#: [id number] Admission: 04/01/19 Date of : 54 Discharge: Report #: [id number] Path Case #: [id number] [facility] Accession Number: [id number] . 01 Material submitted: . rectum - RECTAL SIGMOID POLYPS. Modifiers: sigmoid . 01 Clinical history: . Esophageal varices, family history of breast cancer, family history of lung cancer. . 02 Diagnosis: Rectal sigmoid polyp(s): - Multiple fragments of hyperplastic polyp(s). (CLAUDIA:leon; 04/04/2019) MBR/04/04/2019 . 02 Electronically signed: . Umberto Hunter MD, Pathologist NPI- [id number] . 01 Gross description: . Received in formalin labeled "Maggie Zeng, rectal sigmoid polyp" ("rectal sigmoid polyps" noted on requisition) and clarified on the problem specimen form as "Maggie Cui" is a 0.6 x 0.4 x 0.1 cm aggregate of fenton-brown tissue fragments. The specimen is submitted in A1. ([facility] [place]; 04/03/2019) SYC/SYC . 02 Pathologist provided ICD-10: K62.1 . 02 CPT . 698533 Specimen Comment: A courtesy copy of this report has been sent to Specimen Comment: [phone], . Specimen Comment: Report sent to / DR GOTTI Performed at: [address], [place] [id number] MD Carmelo Camarena MD Phone: [phone] Performed at: 02 [facility] [address], [place], [place] [id number] MD Umberto Hunter MD Phone: [phone]
== END | disposition home or self-care (01) ==
LOC: M.SUR 06:21
DX: Z12.11 Encounter for screening for malignant neoplasm of colon (principal); D50.9 Iron deficiency anemia, unspecified; K62.1 Rectal polyp; K64.8 Other hemorrhoids; K31.89 Other diseases of stomach and duodenum; K44.9 Diaphragmatic hernia without obstruction or gangrene; K74.60 Unspecified cirrhosis of liver; K76.6 Portal hypertension; F41.9 Anxiety disorder, unspecified; F32.9 Major depressive disorder, single episode, unspecified; F17.210 Nicotine dependence, cigarettes, uncomplicated; Z79.899 Other long term (current) drug therapy; Z98.890 Other specified postprocedural states; Z80.1 Family history of malignant neoplasm of trachea, bronchus and lung; Z80.3 Family history of malignant neoplasm of breast